=== PATIENT | female | born 1985 | race Caucasian/White ===

== ENCOUNTER 2017-04-10 08:43 | Emergency (ER) | payer MEDICAID ==
[~2017-04-10] VITALS: Ht 165.1 cm; Wt 88.0 kg
[2017-04-10 08:44] VITALS: BP 133/79
[2017-04-10] MEDS ORDERED: methylPREDNISolone SOD SUCC 125 MG/2 ML VL IM ONE (09:45)
== END 2017-04-10 09:44 | disposition home or self-care (01) ==
LOC: ER 08:47
DX: R21 Rash and other nonspecific skin eruption (principal); T78.40XA Allergy, unspecified, initial encounter; I48.91 Unspecified atrial fibrillation; E11.9 Type 2 diabetes mellitus without complications; I10 Essential (primary) hypertension; F17.210 Nicotine dependence, cigarettes, uncomplicated